=== PATIENT | male | born 1990 ===

== ENCOUNTER 2020-07-09 11:24 | Emergency (ER) | payer OTHER, SELFPAY ==
[2020-07-09 11:46] VITALS: BP 152/92; PULSE 72; RESP 18; TEMP 36.1; O2SAT 98; BMI 28.0
--- NOTE | 2020-07-09 13:14 | XR_ITS ---
EXAMINATION: XR CHEST CLINICAL INFORMATION: Shortness of breath COMPARISON: 04/19/2015 TECHNIQUE: Frontal view of the chest was obtained. FINDINGS: No significant abnormality is noted involving the heart, lungs, mediastinum, bony thorax or soft tissues. XR/XR chest 1V IMPRESSION: Unremarkable examination.
--- NOTE | 2020-07-09 13:15 | ED_ITS ---
HPI - Asthma General Chief Complaint: Asthma Stated Complaint: sob Time Seen by Provider: 07/09/20 13:13 Source: patient Mode of arrival: ambulatory Limitations: no limitations History of Present Illness HPI Narrative: Three days of shortness of breath and wheezing, patient described it as constant for the last 3 days despite using bronchodilator (patient's son medication), patient's son go to daycare with a positive COVID case. Patient also complained of dizziness (lightheadedness when he tried to take a deep breath), no headache, no weakness, no fever, no chills. Related Data Previous Rx's Medication Instructions Recorded albuterol sulfate 2.5 mg INHALATION Q4-6H PRN #75 ml 07/09/20 albuterol sulfate [ProAir HFA] 2 puff INHALATION Q6H PRN #18 g 07/09/20 Allergies Allergy/AdvReac Type Severity Reaction Status Date / Time No Known Allergies Allergy Unverified 04/13/20 17:23 [No Known Allergies*] Review of Systems Review of Systems: All other systems are reviewed and are negative Constitutional: Reports as per HPI and Reports no additional constitutional complaints Eyes: Reports as per HPI and Reports no additional eye complaints Reports system reviewed and no additional complaints, except as documented Cardiovascular: Reports as per HPI and Reports no additional cardiovascular complaints Respiratory: Reports as per HPI and Reports no additional respiratory complaints Gastrointestinal: Reports as per HPI and Reports no additional gastrointestinal complaints Genitourinary: Reports no additional female genitourinary complaints Musculoskeletal: Reports no additional musculoskeletal complaints Skin/Breast: Reports system reviewed and no additional complaints, except as docu Psychiatric: Reports no additional psychiatric complaints Endocrine: Reports no additional endocrine complaints Hematologic/Lymphatic: Reports no additional hematologic/lymphatic complaints Allergic/Immunologic: Reports no additional allergic/immunologic complaints Reports system reviewed and no additional complaints, except as documented and Reports Abnormal speech present [facility] Past Medical History Medical History Asthma Social History Social History (Updated 07/09/20 @ 13:19 by Casey Garner MD) Use of substances other than those prescribed or required for medical reasons: Yes Substance Use Type: Marijuana Substance Use Frequency: Daily Last Used Substance: Days (ago) Advance Directives: No Advance Directives Information Provided: No Physical Exam Vital Signs: Vital Signs: Last Vital Signs Temp 97 F 07/09/20 11:46 Pulse 54 07/09/20 13:32 Resp 18 07/09/20 11:46 BP 152/92 H 07/09/20 11:46 Pulse Ox 98 07/09/20 11:46 Body Mass Index 28.0 Vital signs have been reviewed as normal and appeared to be correct. Blood pressure on the high range. Heart rate normal. Respiration rate normal. Temperature normal. Oxygen saturation normal. Appearance: Alert. Oriented X3. No acute distress. Head: Normal external exam. Normocephalic. Atraumatic. No Greenfield signs noted. No raccoon eyes noted Eyes: PERRLA. EOMI. Conjunctiva and sclera normal. Eyelids normal. ENT: EAC normal. TM's Normal. Pharynx normal. Uvula midline. Moist mucous membranes. No trismus noted. No drooling noted. No muffled voice noted. Neck: Normal inspection. Neck supple. FROM. No adenopathy. Thyroid Normal. No meningeal signs. No neck mass noted. CVS: Normal heart rate and rhythm. Heart sound normal. No murmurs noted. Pulses normal throughout. Respiratory: No respiratory distress. Painless inspiration. Breath sounds normal. Diffuse and mild expiratory wheezes, no rales, no rhonchi noted. Chest nontender. No accessory muscle usage noted or decreased air movement noted. Abdomen: Soft and nontender. Bowel sounds normal in all 4 quadrants. No distention noted. No organomegaly noted. No visible injury noted. Back: No CVA tenderness. Full range of motion noted. Skin: Skin warm and dry. Normal skin color. Normal skin turgor. No rashes/lesions/lacerations noted. Extremities: No lower extremity edema. Extremities exhibit normal range of motion. Extremities nontender. Neuro: Oriented X 3. No motor deficit. No sensory deficit. Reflexes normal. MDM - Asthma MDM Narrative Medical decision making narrative: Assessment and plan. 29-year-old male presented with worsening of asthma with shortness of breath, sounds daycare had a positive case of COVID, patient tested positive for COVID- 19 in the emergency department, patient hemodynamically stable and not hypoxic, we will discharge the patient with 2 weeks of self-quarantine, bronchodilator p.r.n., seek immediate medical attention if worsening of the breathing. Lab Data Labs: Lab Results 07/09/20 Range/Units 13:22 COVID-19 ([facility]) Positive A (Negative) COVID-19 Clin Com See Note Imaging Data Chest x-ray: Radiologist's impression: Unremarkable examination. Discharge Plan Discharge Clinical Impression: Pneumonia due to 2019 novel coronavirus Asthma with acute exacerbation Qualifiers: Asthma severity: mild Asthma persistence: intermittent Qualified Code(s): J45.21 - Mild intermittent asthma with (acute) exacerbation Patient Disposition: Home, Self-Care Instructions: COVID-19 (Coronavirus Disease 2019) (ED) Additional Instructions: Use the face mask, hand wood heel back liner. Self-quarantine for 2 weeks. Seek immediate medical attention if worsening of shortness of breath. Prescriptions: New albuterol sulfate [ProAir HFA] 90 mcg/actuation HFA aerosol inhaler 2 puff inhalation Q6H PRN (Reason: shortness of breath or wheezing) Qty: 18 RF: 0 albuterol sulfate 2.5 mg /3 mL (0.083 %) solution for nebulization 2.5 mg inhalation Q4-6H PRN (Reason: shortness of breath or wheezing) Qty: 75 RF: 0 Referrals: Physician,Unknown [Primary Care Provider] - 2 days
[2020-07-09] MEDS: predniSONE 20 MG TABLET 60 MG PO (13:23)
[2020-07-09] MEDS: Albuterol/Iprat 2.5/0.5MG 3 ML AMPUL.NEB INHALE (13:27)
[2020-07-09] MEDS: Albuterol Sulfate (0.083%) 2.5 MG/3 ML VIAL.NEB 5 MG INHALE (13:27)
[2020-07-09 13:32] VITALS: PULSE 54; O2SAT 99
--- NOTE | 2020-07-09 13:38 | PC.NURSE ---
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 RESP THERAPY AT BEDSIDE PT GETTING RESP TREATMENT.
[2020-07-09 13:42] LABS: COVID-19 Test Positive (Negative)
== END 2020-07-09 14:20 | disposition home or self-care (01) ==
PROVIDERS: Emergency Provider Emergency Medicine
DX: U07.1 COVID-19 (principal); J12.89 Other viral pneumonia; J45.21 Mild intermittent asthma with (acute) exacerbation; F12.90 Cannabis use, unspecified, uncomplicated; Z79.899 Other long term (current) drug therapy
CPT/HCPCS: 71045; 87635; 94640; 94644; 99283

== ENCOUNTER 2020-12-10 10:26 | Emergency (ER) | payer OTHER, SELFPAY ==
--- NOTE | ~2020-12-10 | XR_ITS ---
EXAMINATION: XR CHEST CLINICAL INFORMATION: Wheezing and shortness of breath COMPARISON: Chest x-ray 07/09/2020 TECHNIQUE: Frontal view of the chest was obtained. FINDINGS: Cardiac silhouette is normal in size. The lungs are well aerated. There is no lobar consolidation. No pleural effusion or pneumothorax. XR/XR chest 1V IMPRESSION: Stable examination demonstrating no acute pulmonary pathology.
[2020-12-10 10:30] VITALS: BP 134/63; PULSE 81; RESP 16; TEMP 36.9; O2SAT 99; BMI 28.1
--- NOTE | 2020-12-10 10:48 | ED_ITS ---
HPI - Asthma General Chief Complaint: Dyspnea Stated Complaint: DIFF BREATHING ASTHMA Time Seen by Provider: 12/10/20 10:41 Source: patient Mode of arrival: ambulatory Limitations: no limitations History of Present Illness HPI Narrative: 30 y/o male with history of mild intermittent asthma presents with wheezing and SOB for the last 2 days, worse this morning. He states overall his asthma is well controlled and it only flares up when he is sick. He has been using his rescue inhaler with persistent feeling of wheezing. He has a cough productive of green phlegm. He has chest soreness when he coughs. No fever, ch ills, N/V, body aches, headaches, abdominal pain. No exposure to COVID. He has a history of COVID in August. MD complaint: asthma attack and wheezing Onset (ago): day(s) (2) Severity: moderate and similar to prior Context: none known Associated symptoms: productive cough Asthma History: childhood onset Related Data Current Asthma Therapy: inhaled bronchodilator (PRN only ) Previous Rx's Medication Instructions Recorded albuterol sulfate 2.5 mg INHALATION Q4-6H PRN #75 ml 07/09/20 albuterol sulfate [ProAir HFA] 2 puff INHALATION Q6H PRN #18 g 07/09/20 azithromycin [Zithromax Z-Óscar] See Rx Instructions .ROUTE 12/10/20 .COMPLEX #6 tab prednisone 40 mg PO DAILY 5 Days #10 tab 12/10/20 Allergies Allergy/AdvReac Type Severity Reaction Status Date / Time No Known Allergies Allergy Unverified 04/13/20 17:23 [No Known Allergies*] Review of Systems Review of Systems: Constitutional: No Fever, No Chills ENT/Mouth: No sore throat, No Rhinorrhea, No Swallowing Difficulty Eyes: No Eye Pain, No Swelling, No Redness Cardiovascular: No Chest Pain, + SOB, No Orthopnea, No Edema Respiratory: + Cough, + Sputum, + Wheezing, No dyspnea Gastrointestinal: No Nausea, No Vomiting, No abdominal Pain Musculoskeletal: No joint pain, No Myalgias Skin: No Skin Lesions, No rash Neuro: No Weakness, No Dizziness, No Headache Heme/Lymph: No Lymphadenopathy PMFSH Past Medical History Attestation statement: The following information was validated with the patient. Medical History Asthma Social History Social History (Updated 07/09/20 @ 13:19 by Casey Garner MD) Substance Use Type: Marijuana Advance Directives: Yes Advance Directives Information Provided: No Advance Directives on File: No Physical Exam Vital Signs: Vital Signs: Last Vital Signs Temp 98.5 F 12/10/20 10:30 Pulse 87 12/10/20 11:41 Resp 18 12/10/20 11:41 BP 134/63 12/10/20 10:30 Pulse Ox 98 12/10/20 11:41 Body Mass Index 28.1 Appearance: Alert. Oriented X3. No acute distress. Eyes: Pupils equal, round and reactive to light. ENT: Pharynx normal. Neck: Normal inspection. Neck supple. CVS: Normal heart rate and rhythm. Pulses normal. Respiratory: No respiratory distress. Speaking in complete sentences, end expiratory wheezing throughout all lung felipe, no rhonchi or rales. Abdomen: Soft and nontender. +BS x4 Skin: Skin warm and dry. Normal skin color. Normal skin turgor. No rashes. Extremities: No lower extremity edema. Negative Erica's sign Neuro: Oriented X 3. Non-focal, ambulates with steady gait without RODRIGUEZ Course Course Course Narrative: 30 y/o male with history of mild intermittent asthma presenting with wheezing and productive cough x2 days. No COVID symptoms. Non- toxic and afebrile on arrival with mild wheezing throughout. Will check CXR and give albuterol neb and PO prednisone. Will reassess. Reevaluation(s) Reevaluation #1: 12:10pm - CXR negative. Breath sounds improved s/p neb. Patient is feeling better. He is stable for d/c with treatment for acute bronchitis and asthma exacerbation. Discharge Plan Discharge Clinical Impression: Asthma with exacerbation Qualifiers: Asthma severity: mild Asthma persistence: intermittent Qualified Code(s): J45.21 - Mild intermittent asthma with (acute) exacerbation Acute bronchitis Qualifiers: Bronchitis organism: unspecified organism Qualified Code(s): J20.9 - Acute bronchitis, unspecified Patient Disposition: Home, Self-Care Instructions: Asthma (ED), Acute Bronchitis (ED) Additional Instructions: Your chest x-ray today did not show any evidence of pneumonia. Given your productive cough you are being started on antibiotics for bronchitis. Take the prescribed Prednisone as directed. Start taking it tomorrow, you were given your 1st dose in the ER today. Continue to use your rescue inhaler every 4 hours as needed. Recommend over the counter Mucinex 1,200 mg two times per day for 3 days. Rest and stay hydrated. Avoid second hand smoke, cleaning chemicals and perfumes. Follow up with your doctor this week. If you have worsening symptoms come back to the ER for further evaluation. Prescriptions: New azithromycin [Zithromax Z-Óscar] 250 mg tablet See Rx Instructions .ROUTE .COMPLEX Qty: 6 RF: 0 prednisone 20 mg tablet 40 mg PO DAILY 5 Days Qty: 10 RF: 0 No Action albuterol sulfate [ProAir HFA] 90 mcg/actuation HFA aerosol inhaler 2 puff inhalation Q6H PRN (Reason: shortness of breath or wheezing) Qty: 18 RF: 0 albuterol sulfate 2.5 mg /3 mL (0.083 %) solution for nebulization 2.5 mg inhalation Q4-6H PRN (Reason: shortness of breath or wheezing) Qty: 75 RF: 0 Stand Alone Forms: Work/School Release
[2020-12-10] MEDS: predniSONE 20 MG TABLET 60 MG PO (10:50)
[2020-12-10] MEDS: Albuterol Sulfate (0.083%) 2.5 MG/3 ML VIAL.NEB 10 MG INHALE (11:00)
--- NOTE | 2020-12-10 11:02 | PC.NURSE ---
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 SINUS RYTHYM.
[2020-12-10 11:04] VITALS: PULSE 78; O2SAT 99
[2020-12-10 11:41] VITALS: PULSE 87; RESP 18; O2SAT 98
== END 2020-12-10 12:19 | disposition home or self-care (01) ==
PROVIDERS: Emergency Provider Emergency Medicine
DX: J45.21 Mild intermittent asthma with (acute) exacerbation (principal); J20.9 Acute bronchitis, unspecified; F12.90 Cannabis use, unspecified, uncomplicated; Z79.899 Other long term (current) drug therapy; Z20.822 Contact with and (suspected) exposure to COVID-19
CPT/HCPCS: 71045; 94640; 94644; 99284

== ENCOUNTER 2021-03-16 07:36 | Outpatient (REF) | payer OTHER, SELFPAY ==
[2021-03-16 08:05] LABS: COVID-19 Test Negative (Negative)
== END 2021-03-16 07:37 | disposition home or self-care (01) ==
LOC: HO.LAB 07:36
PROVIDERS: Visit Provider Internal Medicine
DX: Z20.822 Contact with and (suspected) exposure to COVID-19 (principal)
CPT/HCPCS: 36415; 87635; C9803

== ENCOUNTER 2023-04-01 08:59 | Emergency (ER) | payer OTHER, SELFPAY ==
--- NOTE | ~2023-04-01 | XR_ITS ---
EXAMINATION: XR FINGER, LEFT CLINICAL INFORMATION: Pain COMPARISON: None available. TECHNIQUE: 3 views of the left fifth digit. FINDINGS: Bones have normal alignment within the visualized hand and wrist. Joint spaces are maintained. No acute fracture or subluxation. There are no dystrophic soft tissue calcifications. There is a flexion deformity of the distal interphalangeal joint of the fifth digit. The chronicity of the deformity is uncertain. There are no comparison exams. No history of trauma is provided. XR/XR finger LT min 2V IMPRESSION: Mallet finger (5th digit) without evidence of fracture.
[2023-04-01 09:12] VITALS: BP 131/82; PULSE 80; RESP 16; TEMP 36.9; O2SAT 98; BMI 30.5
--- NOTE | 2023-04-01 09:14 | ED_ITS ---
HPI - Extremity Injury (Upper) General Chief Complaint: Extremity Injury, Upper Stated Complaint: Finger inj L hand Time Seen by Provider: 04/01/23 09:10 Source: patient and RN notes reviewed Mode of arrival: ambulatory Limitations: no limitations History of Present Illness HPI narrative: This is a 32-year-old male, with a past medical history of asthma presenting to the emergency department with complaints of left finger pain x2 days. Patient states that he jumped into a pool and believes that he jammed his finger on a railing. He states he did not initially have pain but he was drinking alcohol and believes that his judgment was impaired. Patient reports that he is right- handed. He reports some tenderness to palpation along his finger however is unable to fully extend his finger since the injury. He is applying ice which has provided him with some relief. No other complaints or concerns at this time. complaint: injury to: finger Onset (ago): day(s) Other Extremity Injury: left: fingers Other injuries: none Handedness: right Place: home Relieving factors: cold therapy Exacerbating factors: none Context: direct blow Associated symptoms: denies other symptoms Related Data Previous Rx's Medication Instructions Recorded albuterol sulfate 2.5 mg/3 mL 2.5 mg (3 mL) inhalation Q4-6H PRN 07/09/20 (0.083 %) solution for nebulization shortness of breath or wheezing #75 mL albuterol sulfate 90 mcg/actuation 2 puff inhalation Q6H PRN 07/09/20 aerosol inhaler (ProAir HFA) shortness of breath or wheezing #18 grams azithromycin 250 mg tablet See Rx Instructions PO .COMPLEX #6 12/10/20 (Zithromax Z-Óscar) tabs prednisone 20 mg tablet 40 mg PO DAILY 5 days #10 tabs 12/10/20 Allergies Allergy/AdvReac Type Severity Reaction Status Date / Time No Known Allergies Allergy Unverified 04/13/20 17:23 [No Known Allergies*] Review of Systems Review of Systems: Yes all other systems are reviewed and are negative [facility] Past Medical History Attestation statement: The following information was validated with the patient. Medical History Asthma Social History Social History Substance Use Type: Marijuana Advance Directives: No Advance Directives Information Provided: No Physical Exam Vital Signs: Vital Signs: Last Vital Signs Temp 98.4 F 04/01/23 09:12 Pulse 80 04/01/23 09:12 Resp 16 04/01/23 09:12 BP 131/82 04/01/23 09:12 Pulse Ox 98 04/01/23 09:12 BMI result Body Mass Index 30.5 Const: Other: General: Awake, alert, and oriented X3. No acute distress. HEENT: Normal inspection CVS: Normal heart rate and rhythm. Pulses normal. Respiratory: No respiratory distress Skin: Warm, dry, no rashes noted to exposed skin. Normal skin color. Normal skin turgor. Extremities: left fifth DIP in flexed position, unable to extend left 5th PIP able to flex the DIP, PIP range of motion is full and intact. No surrounding erythema or warmth. Radial pulses 2+. Neuro: Oriented X 3. No motor deficit. No sensory deficit. Course Reevaluation(s) Reevaluation #1: X-ray reviewed without any bony abnormalities, mallet finger without any evidence of fracture seen. Placed patient's left 5th digit and a finger splint. Given orthopedic follow-up. Advised to keep splint on finger at all times. Patient understands and agrees with plan. Patient stable for discharge. Time: 10:20 Medical Decision Making Medical Decision Making MDM Narrative: This is a 32-year-old male presenting to the emergency department with complaints of jammed left 5th finger. Patient states that several days ago he jumped and hit his finger in a pool he has been unable to extend his left 5th D IP since this injury. On examination, left 5th PIP is flexed, with mild tenderness to palpation along the D IP. No surrounding erythema or warmth. Differential diagnoses include mallet finger, fracture, dislocation, contusion. Given exam min a duque findings, will obtain x-rays to rule out fracture and dislocation. Differential Diagnosis Differential Diagnoses: The differential diagnosis associated with the presentation includes See above Independent Interpretation I performed an independent interpretation of an: Plain X-Ray Interpretation: EXAMINATION: XR FINGER, LEFT CLINICAL INFORMATION: Pain? COMPARISON: None available.? TECHNIQUE: 3 views of the left fifth digit. FINDINGS: Bones have normal alignment within the visualized hand and wrist. Joint spaces are maintained. No acute fracture or subluxation. There are no dystrophic soft tissue calcifications. There is a flexion deformity of the distal interphalangeal joint of the fifth digit. The chronicity of the deformity is uncertain. There are no comparison exams. No history of trauma is provided.? XR/XR finger LT min 2V IMPRESSION: Mallet finger (5th digit) without evidence of fracture. ? Dictated By: Sumeet Richardson MD Discharge Plan Discharge Clinical Impression: Mallet deformity of little finger Patient Disposition: Home, Self-Care Instructions: Jammed Finger (ED) Additional Instructions: Your x-rays today show no broken bones or dislocation. You have an injury to the tendon responsible for extending your finger. We have placed her finger into a finger splint. You have to wear this 24/, even while your sleeping to help repair this tendon. You may have to wear this splint for 6-8 weeks. I am giving you a referral to the crm marketing specialist, call today to make an appointment. If any new or worsening symptoms occur including but not limited to worsening pain, weakness or numbness into your finger, redness or swelling, please return for re-evaluation. Prescriptions: No Action azithromycin [Zithromax Z-Óscar] 250 mg tablet See Rx Instructions .ROUTE .COMPLEX Qty: 6 0RF Rx Instructions: take 500 mg today (day 1), then 250 mg for 4 days (days 2-5) prednisone 20 mg tablet 40 mg PO DAILY 5 Days Qty: 10 0RF albuterol sulfate [ProAir HFA] 90 mcg/actuation HFA aerosol inhaler 2 puff inhalation Q6H PRN (Reason: shortness of breath or wheezing) Qty: 18 0RF albuterol sulfate 2.5 mg /3 mL (0.083 %) solution for nebulization 2.5 mg inhalation Q4-6H PRN (Reason: shortness of breath or wheezing) Qty: 75 0RF Referrals: [facility] [Provider Group]
== END 2023-04-01 10:33 | disposition home or self-care (01) ==
PROVIDERS: Emergency Provider Emergency Medicine
DX: M20.012 Mallet finger of left finger(s) (principal); Z79.899 Other long term (current) drug therapy
CPT/HCPCS: 73140; 99282; 99283

== ENCOUNTER 2023-08-27 09:17 | Emergency (ER) | payer OTHER, SELFPAY ==
--- NOTE | ~2023-08-27 | XR_ITS ---
EXAMINATION: XR LEFT FOOT XR SACRUM/COCCYX CLINICAL INFORMATION: Left lateral foot pain after fall. Pain in the coccyx region. COMPARISON: None. TECHNIQUE: AP, lateral, and oblique views of the left foot. AP and lateral views of the sacrum and coccyx. FINDINGS: Left foot: There is an ossific fragment seen along the lateral process of the calcaneus with surrounding soft tissue swelling possibly representing periosteal sleeve avulsion. Sacrum/coccyx: The sacrum is partially obscured by overlying bowel contents. Sacroiliac joints and pubic symphysis are intact. No displaced fracture or dislocation. XR/XR sacrum coccyx min 2V IMPRESSION: Avulsion fracture of the lateral process of the calcaneus with associated soft tissue swelling.
--- NOTE | ~2023-08-27 | XR_ITS ---
EXAMINATION: XR LEFT FOOT XR SACRUM/COCCYX CLINICAL INFORMATION: Left lateral foot pain after fall. Pain in the coccyx region. COMPARISON: None. TECHNIQUE: AP, lateral, and oblique views of the left foot. AP and lateral views of the sacrum and coccyx. FINDINGS: Left foot: There is an ossific fragment seen along the lateral process of the calcaneus with surrounding soft tissue swelling possibly representing periosteal sleeve avulsion. Sacrum/coccyx: The sacrum is partially obscured by overlying bowel contents. Sacroiliac joints and pubic symphysis are intact. No displaced fracture or dislocation. XR/XR foot LT 2V IMPRESSION: Avulsion fracture of the lateral process of the calcaneus with associated soft tissue swelling.
--- NOTE | ~2023-08-27 | XR_ITS ---
EXAMINATION: XR ANKLE, LEFT CLINICAL INFORMATION: Left ankle pain. COMPARISON: None available. TECHNIQUE: AP, lateral, and mortise views of the left ankle. FINDINGS: Alignment is anatomic. Possible avulsion fracture of the lateral process of the calcaneus seen on the frontal projection. Talar dome is intact ankle mortise is maintained. XR/XR ankle LT min 3V IMPRESSION: Possible avulsion fracture of the lateral process of the calcaneus with surrounding soft tissue swelling. Advise clinical correlation with point tenderness on physical exam.
[2023-08-27 09:24] VITALS: BP 135/64; PULSE 76; RESP 18; TEMP 36.7; O2SAT 96; BMI 30.5
--- NOTE | 2023-08-27 09:46 | ED_ITS ---
HPI - Extremity Injury (Lower) General Chief Complaint: Extremity Injury, Lower Stated Complaint: L Ankle Injury 08/26/23 Time Seen by Provider: 08/27/23 09:28 Source: patient Mode of arrival: ambulatory Limitations: no limitations History of Present Illness HPI Narrative: 32-year-old male presents status post slip and fall yesterday, patient reports he slipped on ice while clearing off snow/ice onto his bottom, immediately after he fell he started having severe left ankle pain he thinks he may have felt a pop in his left ankle and is also having pain in his tailbone region. Patient has been using crutches to ambulate as he reports his left ankle is very painful. Pain is worse with range of motion better at rest. Denies numbness, tingling, head strike, loss of consciousness, change in urinary or bowel habits, saddle paresthesias, weakness. Patient not on blood thinners. Related Data Previous Rx's Medication Instructions Recorded albuterol sulfate 2.5 mg/3 mL 2.5 mg (3 mL) inhalation Q4-6H PRN 07/09/20 (0.083 %) solution for nebulization shortness of breath or wheezing #75 mL albuterol sulfate 90 mcg/actuation 2 puff inhalation Q6H PRN 07/09/20 aerosol inhaler (ProAir HFA) shortness of breath or wheezing #18 grams azithromycin 250 mg tablet See Rx Instructions PO .COMPLEX #6 12/10/20 (Zithromax Z-Óscar) tabs prednisone 20 mg tablet 40 mg (2 x 20 mg) PO DAILY 5 days 12/10/20 #10 tabs ketorolac 10 mg tablet 10 mg PO TID PRN pain 5 days #15 08/27/23 tabs Allergies Allergy/AdvReac Type Severity Reaction Status Date / Time No Known Allergies Allergy Unverified 04/13/20 17:23 [No Known Allergies*] Review of Systems Review of Systems: Constitutional : No Weight loss, No Fever, No Chills, No Fatigue, No Malaise ENT/Mouth : No sore throat, No Rhinorrhea Eyes: No Eye Pain, No Swelling, No Redness Cardiovascular : No Chest Pain, No SOB, No Dyspnea on Exertion, No Orthopnea, No Edema, No Palpitations Respiratory : No Cough, No Sputum, No Wheezing Gastrointestinal : No Nausea, No Vomiting, No Diarrhea, No Constipation, No abdominal Pain, No Hematochezia, No Melena Genitourinary : No Dysuria, No Urinary Frequency, No Hematuria, Musculoskeletal : No joint pain, No Myalgias, No Joint Swelling, + pain to L ankle + pain to buttocks Skin : No Skin Lesions, No rash Neuro : No Weakness, No Numbness, No Dizziness, No Headache Psych : No Anxiety/Panic, No Depression All other systems reviewed and are negative Yes all other systems are reviewed and are negative [facility] Past Medical History Attestation statement: The following information was validated with the patient. Source: old records reviewed and nursing notes reviewed Medical History Asthma Social History Social History Substance Use Type: Marijuana Advance Directives: No Advance Directives Information Provided: No Physical Exam Vital Signs: Vital Signs: Last Vital Signs Temp 98.1 F 08/27/23 09:24 Pulse 76 08/27/23 09:24 Resp 18 08/27/23 09:24 BP 135/64 08/27/23 09:24 Pulse Ox 96 08/27/23 09:24 O2 Del Method Room Air 08/27/23 09:24 BMI result Body Mass Index 30.5 vss Appearance: Alert.? Oriented X3.? No acute distress.? Head: Normocephalic, atraumatic, no step-offs or deformities Eyes: Pupils equal, round and reactive to light.? CVS: Normal heart rate and rhythm.? Pulses normal.? Respiratory: No respiratory distress.? Breath sounds normal.? Abdomen: Soft and nontender.? Skin: Skin warm and dry.? Normal skin color.? Normal skin turgor.? Extremities: No lower extremity edema.? No calf ttp. 5/5 strength to bilateral upper and lower extremities + swelling to the lateral aspect of left foot/ankle without overlying skin changes full range of motion to bilateral ankles however slight discomfort with range of motion of left ankle. Patient able to wiggle all his toes however some pain with wiggling toes of his left foot. 2+ dorsalis pedis, anterior tibialis and posterior tibialis pulses equal bilateral. Normal sensation distally Back: No midline tenderness, no C-spine tenderness, full range of motion, no CVA tenderness bilaterally. Patient does have pain in his coccyx region/tailbone without overlying skin changes. No saddle paresthesias. Ambulating with steady gait normal coordination. Neuro: Oriented X 3.? No motor deficit.? No sensory deficit. CN 2-12 intact GCS- 15 NIHSS-0 Course Reevaluation(s) Reevaluation #1: X-ray showing a avulsion fracture of the lateral process of the calcaneus with associated soft tissue swelling. There is no fractures or dislocations of the sacrum/coccyx. TT out to ortho for advise on tx plan. Time: 11:35 Reevaluation #2: Orthopedics recommends walking boot with weight-bearing as tolerated. Patient has crutches at home if needed. Patient will be given a walking boot. Educated on signs and symptoms of compartment syndrome. Patient verbalizes understanding. Educated patient on diagnosis and treatment plan, answered all question, patient verbalizes understanding. At this time patient will be discharged home, advised to return with new or worsening symptoms. Educated on worrisome signs and symptoms and when to return. At this time I feel comfortable discharge home. Time: 11:40 Medications Administered Discontinued Medications Generic Name Dose Route Start Last Admin Trade Name Freq PRN Reason Stop Dose Admin Ketorolac Tromethamine 30 mg 08/27/23 09:45 08/27/23 09:55 Ketorolac Tromethamine 30 Mg/Ml Vial IM 08/27/23 09:46 30 mg ONCE ONE Administration Medical Decision Making Medical Decision Making [facility] Narrative: 32-year-old male presents with complaints of left ankle pain and pain to coccyx Physical exam swelling to the lateral aspect of left foot/ankle without overlying skin changes full range of motion to bilateral ankles however slight discomfort with range of motion of left ankle. Patient able to wiggle all his toes however some pain with wiggling toes of his left foot. 2+ dorsalis pedis, anterior tibialis and posterior tibialis pulses equal bilateral. Normal sensation distally. Patient does have pain in his coccyx region/tailbone without overlying skin changes. No saddle paresthesias. Ambulating with steady gait normal coordination. Will rule out traumatic injury to coccyx. Will rule out fracture dislocation of left ankle. However likely sprain or strain. No signs of neurovascular compromise, threat to limb. No signs of cauda equina, epidural abscess, cord compression. No signs of traumatic injury to head, neck, chest, abdomen or pelvis. Plan imaging. Toradol for pain control Differential Diagnosis Differential Diagnoses: The differential diagnosis associated with the prese ntation includes Will rule out traumatic injury to coccyx. Will rule out fracture dislocation of left ankle. However likely sprain or strain. No signs of neurovascular compromise, threat to limb. No signs of cauda equina, epidural abscess, cord compression. No signs of traumatic injury to head, neck, chest, abdomen or pelvis. Admission/Observation Consideration of admission/observation: Escalation of care including admission/observation considered Unlikely Consult Healthcare Provider Management of the patient was discussed with: Sampler Ovens (Ortho ) Independent Interpretation I performed an independent interpretation of an: Plain X-Ray ( XR/XR foot LT 2V IMPRESSION: Avulsion fracture of the lateral process of the calcaneus with associated soft tissue swelling. ) Radiology Impression Discussion of test interpretation with radiology: I have reviewed the radiologist's reading. Tests considered The following testing was considered but not selected: bul[place] head ct rule - no trauma so no indication for imaging Prescription Management I considered prescription management with: Pain Medication Tordol Critical Care Time Critical Care Time Critical Care Time: Yes Total Critical Care Time: 35 Attestation: I attest to this time spent taking care of the patient, obtaining history, physical, reviewing labs, imaging, speaking to my attending, speaking to specialist. Discharge Plan Discharge Clinical Impression: Avulsion fracture of calcaneus Patient Disposition: Home, Self-Care Instructions: Crutch Instructions (ED), Calcaneal Fracture (ED) Additional Instructions: Take your medications as prescribed. If you were prescribed antibiotics today, it is important that you take your medication to their entirety, do not skip any doses, do not finish them early. Follow-up with your primary care provider this week. Return to the emergency department with new or worsening symptoms. Such as fevers, chills, chest pain, shortness of breath, nausea, vomiting, dizziness, headache, vision changes, lethargy In case of emergency call 911 Dont sleep w/ the boot on Weight-bearing as tolerated XR/XR foot LT 2V IMPRESSION: Avulsion fracture of the lateral process of the calcaneus with associated soft tissue swelling. Sacrum/coccyx: The sacrum is partially obscured by overlying bowel contents. Sacroiliac joints and pubic symphysis are intact. No displaced fracture or dislocation. Prescriptions: New ketorolac 10 mg tablet 10 mg PO TID PRN (Reason: pain) 5 Days Qty: 15 0RF No Action azithromycin [Zithromax Z-Óscar] 250 mg tablet See Rx Instructions .ROUTE .COMPLEX Qty: 6 0RF Rx Instructions: take 500 mg today (day 1), then 250 mg for 4 days (days 2-5) prednisone 20 mg tablet 40 mg PO DAILY 5 Days Qty: 10 0RF albuterol sulfate [ProAir HFA] 90 mcg/actuation HFA aerosol inhaler 2 puff inhalation Q6H PRN (Reason: shortness of breath or wheezing) Qty: 18 0RF albuterol sulfate 2.5 mg /3 mL (0.083 %) solution for nebulization 2.5 mg inhalation Q4-6H PRN (Reason: shortness of breath or wheezing) Qty: 75 0RF Referrals: Physician,None [Primary Care Provider] - 2 days Stand Alone Forms: Work/School Release
[2023-08-27] MEDS: Ketorolac Tromethamine 30 MG/ML VIAL IM (09:55)
--- NOTE | 2023-08-27 10:01 | PC.NURSE ---
patient a&ox3, c/o buttock pain 05/06, pt medicated per order, call mir within reach, will continue to monitor
[2023-08-27 12:00] VITALS: BP 138/58; PULSE 77; RESP 18; TEMP 36.7; O2SAT 96
== END 2023-08-27 12:29 | disposition home or self-care (01) ==
PROVIDERS: Emergency Provider Emergency Medicine Emergency Medical Services
DX: S92.002A Unspecified fracture of left calcaneus, initial encounter for closed fracture (principal); W00.0XXA Fall on same level due to ice and snow, initial encounter; M53.3 Sacrococcygeal disorders, not elsewhere classified; Y93.89 Activity, other specified; Y92.89 Other specified places as the place of occurrence of the external cause; Y99.9 Unspecified external cause status
CPT/HCPCS: 72220; 73610; 73620; 96372; 99284; J1885

== ENCOUNTER 2023-12-17 10:40 | Emergency (ER) | payer OTHER, SELFPAY ==
--- NOTE | ~2023-12-17 | XR_ITS ---
EXAMINATION: XR KNEE, RIGHT CLINICAL INFORMATION: Pain COMPARISON: None available. TECHNIQUE: Four views of the right knee. FINDINGS: Hardware partially visualized in the distal femur. There is lucency around the hardware. Therefore an element of loosening cannot be excluded. There is no evidence for an acute fracture or dislocation. Small bony excrescence emanating off the medial aspect of the proximal tibial metadiaphysis could represent a small osteochondroma. Please compare with previous studies XR/XR knee RT 4V IMPRESSION: No acute finding. Hardware in the distal femur. Element of loosening cannot be excluded. There is no evidence for an acute fracture or dislocation. Other findings are as described above.
[2023-12-17 10:48] VITALS: BP 147/93; PULSE 78; RESP 16; TEMP 36.9; O2SAT 98; BMI 32.3
--- NOTE | 2023-12-17 12:12 | ED_ITS ---
HPI - General Adult General Chief complaint: Extremity Injury, Lower Stated complaint: R knee pain Time Seen by Provider: 12/17/23 12:11 Source: patient Mode of arrival: ambulatory Limitations: no limitations History of Present Illness ED Provider: Adilene Burden PA-C HPI narrative: Patient is a 33 year old assigned male at with a history of previous right leg surgery in childhood presenting to the emergency department today with right knee pain. Patient states that 3 weeks ago he noticed pain in his right knee that seems to be getting worse. 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 Patient states that his right knee is giving out at times. Patient states that he removed a tick from his chest a little while ago and does not think he got the head out. Patient denies any dizziness, lightheadedness, abdominal pain, nausea, vomiting, fever, chills, blurry vision, double vision, loss of vision, chest pain, difficulty breathing, shortness of breath, back pain, night sweats, pain with urination, increased urinary frequency, increased urinary urgency, blood in his urine or stool, syncope or a near syncopal episode, recent trauma or falls, bowel incontinence, bladder incontinence, bowel retention, bladder retention, or any other complaints at this time. Onset (ago): week(s) (3) Location: right and lower extremity Radiation: non-radiation Severity: mild Severity scale (1-10): 3 Quality: aching and dull Pain Consistency: constant Relieving factors: immobilization Exacerbating factors: movement Associated symptoms: denies other symptoms Treatments prior to arrival: none Related Data Previous Rx's ?Medication ?Instructions ?Recorded albuterol sulfate 2.5 mg/3 mL 2.5 mg (3 mL) inhalation Q4-6H PRN 07/09/20 (0.083 %) solution for nebulization shortness of breath or wheezing #75 mL albuterol sulfate 90 mcg/actuation 2 puff inhalation Q6H PRN 07/09/20 aerosol inhaler (ProAir HFA) shortness of breath or wheezing #18 grams azithromycin 250 mg tablet See Rx Instructions PO .COMPLEX #6 12/10/20 (Zithromax Z-Óscar) tabs prednisone 20 mg tablet 40 mg (2 x 20 mg) PO DAILY 5 days 12/10/20 #10 tabs ketorolac 10 mg tablet 10 mg PO TID PRN pain 5 days #15 08/27/23 tabs doxycycline hyclate 100 mg tablet 100 mg PO BID 10 days #20 tabs 12/17/23 Allergies Allergy/AdvReac Type Severity Reaction Status Date / Time No Known Allergies Allergy Verified 12/17/23 10:51 [No Known Allergies*] Review of Systems 2 Constitutional: Constitutional: Reports no additional constitutional complaints, Denies chills, Denies fever(s) and Denies night sweats Eyes: Eyes: Reports no additional eye complaints, Denies blurry vision, Denies change in vision, Denies diplopia, Denies eye discharge, Denies loss of vision and Denies eye pain ENT: Denies dizziness Cardiovascular: Cardiovascular: Reports no additional cardiovascular complaints, Denies chest pain, Denies lightheadedness, Denies Loss of Consciousness and Denies dyspnea Respiratory: Respiratory: Reports no additional respiratory complaints and Denies dyspnea Gastrointestinal: Gastrointestinal: Reports no additional gastrointestinal complaints, Denies abdominal pain, Denies melena, Denies hematochezia, Denies change in bowel habits and Denies change in stool character Genitourinary: Genitourinary: Reports no additional male genitourinary complaints, Denies hematuria, Denies oliguria, Denies difficulty urinating, Denies dysuria, Denies urinary frequency, Denies urinary hesitancy, Denies urinary incontinence and Denies urinary urgency Musculoskeletal: Musculoskeletal: Reports no additional musculoskeletal complaints, Denies numbness and Denies tingling Comments: right knee pain Integumentary/Breasts: Comments: possible retained tick head in chest Neurologic: Denies dizziness, Denies loss of vision, Denies numbness and Denies tingling Psychiatric: Psychiatric: Reports no additional psychiatric complaints Endocrine: Endocrine: Reports no additional endocrine complaints Hematologic/Lymphatic: Hematologic/Lymphatic: Reports no additional hematologic/lymphatic complaints Allergic/Immunologic: Allergic/Immunologic: Reports no additional allergic/immunologic complaints PMFSH Past Medical History Attestation statement: The following information was validated with the patient. Source: old records reviewed and nursing notes reviewed Medical History Asthma Social History Social History Substance Use Type: Marijuana Advance Directives: No Advance Directives Information Provided: No Physical Exam ED Vital Signs: Vital Signs - 24 hr 12/17/23 10:48 12/17/23 12:29 Temperature 98.5 F 97.1 F Pulse Rate 78 86 Respiratory Rate 16 18 Blood Pressure 147/93 H 147/94 H Pulse Oximetry 98 97 Oxygen Delivery Method Room Air Room Air BMI result Body Mass Index 32.3 Const General: cooperative, no acute distress, alert and awake Nutritional Appearance: well nourished Orientation/consciousness: patient oriented x3 Limitations: no limitations HENMT Head: Yes normal to inspection and Yes atraumatic Ears: hearing grossly normal bilaterally and external ears normal General nose exam: Normal external nose present, no nasal discharge noted and no epistaxis Face and sinus: Yes normal facial exam, No abrasion and No laceration Mouth: Normal oral and palatal mucosa present, no drooling and no muffled voice Eyes General: appearance normal, both eyes and all related structures Periorbital: periorbital findings normal Eyelids: Yes eyelids normal Conjunctivae: conjunctivae normal Pupils: Equal, round and reactive pupils present EOM: EOMs intact bilaterally Neck Neck: Yes normal visual inspection, Yes full ROM and Yes no lymphadenopathy Chest Chest/axillae images: 2 1. very small skin tag - patient reports there may be a tick head inside Resp Effort & Inspection: normal respiratory effort and able to speak in complete sentences GI Inspection: Yes normal to inspection Neuro General: patient oriented x3 and moves all extremities Cranial nerves: Yes Equal, round and reactive pupils present Cognition (Neuro): normal cognition Motor exam (neuro): 5/5 motor strength present throughout Sensory Exam: Normal double simultaneous stimulation for sensation Coordination: [id number] test normal Extrem Other: pain with right knee ROM General: Yes normal to inspection, Yes full ROM and Yes capillary refill normal Psych Appearance: grossly normal Mental Status: mental status grossly normal Affect: normal affect Attitude: cooperative Thought process: Normal thought process present Thought content: Normal thought content present Insight: Good insight present (Psych) Medications Administered Discontinued Medications Generic Name Dose Route Start Last Admin Trade Name Freq PRN Reason Stop Dose Admin Ketorolac Tromethamine 15 mg 12/17/23 12:37 12/17/23 12:44 Ketorolac Tromethamine 15 Mg/Ml Vial IM 12/17/23 12:38 15 mg ONCE ONE Administration Medical Decision Making Medical Decision Making MDM Narrative: Patient is a 33 year old assigned male at with a history of surgery on the right leg as a child presenting to the emergency department today with right knee pain and a tick bite. Patient's physical exam was as noted in the physical exam portion of this note. Patient's chest has a small skin tag which the patient states appeared after the tick bite and he is concerned it is the ticks head. No erythema, no fluctuance, no pain to the area. Patient's right knee had full ROM however, the patient had pain with all right knee ROM. Patient's tick borne panel is pending but given patient's bite and concern, will treat. Patient's right knee x-ray showed no acute process. I explained my physical exam findings as well as all test results to the patient. I answered all questions asked by the patient. I stressed the importance of the patient taking his medication as prescribed. I stressed the importance of the patient following up with his primary care provider and an orthopedic provider. I stressed the importance of the patient returning to the emergency department immediately if his symptoms were to worsen or if he were to develop any dizziness, shortness of breath, difficulty breathing, chest pain, blurry vision, loss of vision, nausea, vomiting, abdominal pain, fever, chills, back pain, or any other complaints. Patient verbalized agreement and understanding with this treatment plan and discharge. Differential Diagnosis Differential Diagnoses: The differential diagnosis associated with the presentation includes Knee sprain Knee strain Knee pain Internal knee injury Lyme disease Tick borne illness Admission/Observation Consideration of admission/observation: Escalation of care including admission/observation considered Patient would have been admitted to the hospital had his work up had any findings where hospital admission was appropriate and his clinical presentation warranted hospital admission. Independent Interpretation I performed an independent interpretation of an: Plain X-Ray Interpretation: My interpretation is in agreement with the radiologist's impression of this imaging study. - EXAMINATION: XR KNEE, RIGHT CLINICAL INFORMATION: Pain COMPARISON: None available. TECHNIQUE: Four views of the right knee. FINDINGS: Hardware partially visualized in the distal femur. There is lucency around the hardware. Therefore an element of loosening cannot be excluded. There is no evidence for an acute fracture or dislocation. Small bony excrescence emanating off the medial aspect of the proximal tibial metadiaphysis could represent a small osteochondroma. Please compare with previous studies XR/XR knee RT 4V IMPRESSION: No acute finding. Hardware in the distal femur. Element of loosening cannot be excluded. There is no evidence for an acute fracture or dislocation. Other findings are as described above. Dictated By: Karel Chávez MD Signed By: Electronically signed by Karel Chávez MD 12/17/23 2755 Radiology Impression Discussion of test interpretation with radiology: I have reviewed the radiologist's reading. Critical Care Time Critical Care Time Critical Care Time: Yes Total Critical Care Time: 32 Attestation: I spent 32 minutes of Critical Care Time with this patient. This does not include time spent on separately reported billable procedures. Discharge Plan Discharge Clinical Impression: Acute knee pain, Tick bite Patient Disposition: Home, Self-Care Instructions: Tick Bite (ED), Knee Pain (ED) Additional Instructions: Follow up with your primary care provider and an orthopedic provider. Given your recent tick bite and unsure if head was removed, we are covering you for Lyme disease. It takes days for the results to come back. We will call you if they are positive. Return to the emergency department immediately if your symptoms worsen or if you develop any dizziness, shortness of breath, difficulty breathing, chest pain, blurry vision, loss of vision, nausea, vomiting, abdominal pain, fever, chills, back pain, or any other complaints. Prescriptions: New doxycycline hyclate 100 mg tablet 100 mg PO BID 10 Days Qty: 20 0RF No Action azithromycin [Zithromax Z-Óscar] 250 mg tablet See Rx Instructions .ROUTE .COMPLEX Qty: 6 0RF Rx Instructions: take 500 mg today (day 1), then 250 mg for 4 days (days 2-5) prednisone 20 mg tablet 40 mg PO DAILY 5 Days Qty: 10 0RF albuterol sulfate [ProAir HFA] 90 mcg/actuation HFA aerosol inhaler 2 puff inhalation Q6H PRN (Reason: shortness of breath or wheezing) Qty: 18 0RF albuterol sulfate 2.5 mg /3 mL (0.083 %) solution for nebulization 2.5 mg inhalation Q4-6H PRN (Reason: shortness of breath or wheezing) Qty: 75 0RF ketorolac 10 mg tablet 10 mg PO TID PRN (Reason: pain) 5 Days Qty: 15 0RF Referrals: [facility] Family Medicine [Provider Group] (Call to establish and follow up with a primary care provider. If you already have a primary care provider, please follow up with them.) [facility] [Provider Group] [facility] Primary [facility] [Provider Group] [facility] [place] [facility] Surgeons [Provider Group] (Call to establish and follow up with an orthopedic provider.) Stand Alone Forms: Work/School Release Discharge Date/Time: 12/17/23 12:51 Print Language: Malay
[2023-12-17 12:29] VITALS: BP 147/94; PULSE 86; RESP 18; TEMP 36.2; O2SAT 97
[2023-12-17] MEDS: Ketorolac Tromethamine 15 MG/ML VIAL IM (12:44)
[2023-12-18 18:03] LABS: Lyme Abs Screen <0.90 index
== END 2023-12-17 12:51 | disposition home or self-care (01) ==
PROVIDERS: Emergency Provider Emergency Medicine
DX: M25.561 Pain in right knee (principal); W57.XXXA Bitten or stung by nonvenomous insect and other nonvenomous arthropods, initial encounter; Y93.9 Activity, unspecified; Y92.9 Unspecified place or not applicable; Y99.9 Unspecified external cause status
CPT/HCPCS: 36415; 73564; 86617; 86618; 96372; 99283; 99284; J1885

== ENCOUNTER 2024-01-07 06:55 | Outpatient (REF) | payer OTHER, SELFPAY | END 2024-01-07 06:56 | disposition home or self-care (01) | LOC: HO.HOSX 06:55 | PROVIDERS: Visit Provider Physician Assistant | DX: Z13.89 Encounter for screening for other disorder (principal) ==

== ENCOUNTER → 2024-05-25 08:58 | Outpatient (BNVA) | payer OTHER, SELFPAY | PROVIDERS: Visit Provider Registered Nurse | DX: L23.7 Allergic contact dermatitis due to plants, except food (principal) | CPT/HCPCS: 99202 ==

== ENCOUNTER → 2024-05-27 14:32 | Outpatient (BNVA) | payer OTHER, SELFPAY | PROVIDERS: Visit Provider Physician Assistant | DX: L23.7 Allergic contact dermatitis due to plants, except food (principal) | CPT/HCPCS: 99213 ==

== ENCOUNTER → 2024-06-01 09:09 | Outpatient (BNVA) | payer OTHER, SELFPAY | PROVIDERS: Visit Provider Registered Nurse | DX: L23.7 Allergic contact dermatitis due to plants, except food (principal) | CPT/HCPCS: 99213 ==

== ENCOUNTER 2024-10-06 08:36 | Emergency (ER) | payer BC, SELFPAY ==
--- NOTE | ~2024-10-06 | XR_ITS ---
EXAMINATION: XR LUMBAR SPINE 2-3 VIEWS HISTORY: pain s/p lifting child COMPARISON: There are no prior studies for comparison. FINDINGS: AP, lateral, and coned down views of the lumbar spine are submitted. Osseous mineralization is normal. Five nonrib-bearing lumbar vertebral bodies are identified, maintaining normal height and alignment without evidence of fracture or spondylolisthesis. Minimal anterior spurring is seen involving the superior endplate of L4. The intervertebral disc spaces are preserved. The posterior elements are intact. The visualized paraspinal soft tissues are unremarkable. XR/XR lumbar spine 2-3V IMPRESSION: Minimal anterior spurring involving the superior endplate of L4. Otherwise unremarkable examination of the lumbar spine. Electronically signed by: Conrad Evangelista MD 10/06/2024 09:37 AM EDT
[2024-10-06 08:50] VITALS: BP 146/97; PULSE 84; RESP 18; TEMP 36.4; O2SAT 98; BMI 34.8
--- NOTE | 2024-10-06 09:13 | ED_ITS ---
HPI - General Adult General Chief complaint: Back Pain/Injury Stated complaint: Low Back Pain Injury 10/05/24 Time Seen by Provider: 10/06/24 09:09 Source: patient Mode of arrival: ambulatory Limitations: no limitations History of Present Illness ED Provider: Adilene Burden PA-C HPI narrative: Patient is a 34 year old assigned male at with no reported medical history presenting to the emergency department today with low back pain. Patient states that he went to get his son out of the bed when he began to have sharp pain in his left low back that radiates down his left leg. Patient denies any dizziness, lightheadedness, abdominal pain, nausea, vomiting, fever, chills, blurry vision, double vision, loss of vision, chest pain, difficulty breathing, shortness of breath, night sweats, pain with urination, increased urinary frequency, increased urinary urgency, blood in his urine or stool, syncope or a near syncopal episode, recent trauma or falls, bowel incontinence, bladder incontinence, or any other complaints at this time. Onset (ago): hour(s) Location: back Radiation: extremity Relieving factors: none Exacerbating factors: movement Associated symptoms: denies other symptoms Treatments prior to arrival: none Related Data Previous Rx's ?Medication ?Instructions ?Recorded albuterol sulfate 2.5 mg/3 mL 2.5 mg (3 mL) inhalation Q4-6H PRN 07/09/20 (0.083 %) solution for nebulization shortness of breath or wheezing #75 mL albuterol sulfate 90 mcg/actuation 2 puff inhalation Q6H PRN 07/09/20 aerosol inhaler (ProAir HFA) shortness of breath or wheezing #18 grams azithromycin 250 mg tablet See Rx Instructions PO .COMPLEX #6 12/10/20 (Zithromax Z-Óscar) tabs prednisone 20 mg tablet 40 mg (2 x 20 mg) PO DAILY 5 days 12/10/20 #10 tabs ketorolac 10 mg tablet 10 mg PO TID PRN pain 5 days #15 08/27/23 tabs doxycycline hyclate 100 mg tablet 100 mg PO BID 10 days #20 tabs 12/17/23 prednisone 10 mg tablet 10 mg PO DIRECTED #4 tabs 06/01/24 albuterol sulfate 90 mcg/actuation 1 inh inhalation QID #8.5 grams 10/06/24 aerosol inhaler cyclobenzaprine 5 mg tablet 5 mg PO TID PRN muscle spasm 7 10/06/24 days #21 tabs prednisone 20 mg tablet 20 mg PO DAILY 7 days #7 tabs 10/06/24 Allergies Allergy/AdvReac Type Severity Reaction Status Date / Time No Known Allergies Allergy Verified 10/06/24 08:53 [No Known Allergies*] Review of Systems Constitutional: Constitutional: Reports no additional constitutional complaints, Denies chills, Denies fever(s) and Denies night sweats Eyes: Eyes: Reports no additional eye complaints, Denies blurry vision, Denies change in vision, Denies diplopia, Denies eye discharge, Denies loss of vision and Denies eye pain ENT: Denies dizziness Cardiovascular: Cardiovascular: Reports no additional cardiovascular complaints, Denies chest pain, Denies lightheadedness, Denies Loss of Consci ousness and Denies dyspnea Respiratory: Respiratory: Reports no additional respiratory complaints and Denies dyspnea Gastrointestinal: Gastrointestinal: Reports no additional gastrointestinal complaints, Denies abdominal pain, Denies melena, Denies hematochezia, Denies change in bowel habits and Denies change in stool character Genitourinary: Genitourinary: Reports no additional male genitourinary complaints, Denies hematuria, Denies oliguria, Denies difficulty urinating, Denies dysuria, Denies urinary frequency, Denies urinary hesitancy, Denies urinary incontinence and Denies urinary urgency Musculoskeletal: Musculoskeletal: Reports no additional musculoskeletal complaints, Reports back pain, Denies numbness and Denies tingling Neurologic: Denies dizziness, Denies loss of vision, Denies numbness and Denies tingling Psychiatric: Psychiatric: Reports no additional psychiatric complaints Endocrine: Endocrine: Reports no additional endocrine complaints Hematologic/Lymphatic: Hematologic/Lymphatic: Reports no additional hematologic/lymphatic complaints Allergic/Immunologic: Allergic/Immunologic: Reports no additional allergi c/immunologic complaints [facility] Past Medical History Attestation statement: The following information was validated with the patient. Source: old records reviewed and nursing notes reviewed Medical History Asthma Social History Social History Substance Use Type: Marijuana Advance Directives: No Advance Directives Information Provided: Yes Physical Exam ED Vital Signs: Vital Signs - 24 hr 10/06/24 08:50 Temperature 97.5 F Pulse Rate 84 Respiratory Rate 18 Blood Pressure 146/97 H Pulse Oximetry 98 Oxygen Delivery Method Room Air BMI result Body Mass Index 34.8 Const General: cooperative, no acute distress, alert and awake Nutritional Appearance: well nourished Orientation/consciousness: patient oriented x3 Limitations: no limitations HENMT Head: Yes normal to inspection and Yes atraumatic Ears: hearing grossly normal bilaterally and external ears normal General nose exam: Normal external nose present, no nasal discharge noted and no epistaxis Face and sinus: Yes normal facial exam, No abrasion and No laceration Mouth: Normal oral and palatal mucosa present, no drooling and no muffled voice Eyes General: appearance normal, both eyes and all related structures Periorbital: periorbital findings normal Eyelids: Yes eyelids normal Conjunctivae: conjunctivae normal Pupils: Equal, round and reactive pupils present EOM: EOMs intact bilaterally Neck Neck: Yes normal visual inspection, Yes full ROM and Yes no lymphadenopathy Chest Chest palpation & inspection: normal inspection of the chest Resp Effort & Inspection: normal respiratory effort and able to speak in complete sentences GI Inspection: Yes normal to inspection Back/Spine/Pelvis Other: lumbar pain with ROM that radiates down left leg Neuro General: patient oriented x3, moves all extremities and CN's II-XI intact bilaterally Cranial nerves: Yes Equal, round and reactive pupils present Cognition (Neuro): normal cognition Extrem General: Yes normal to inspection, Yes full ROM and Yes capillary refill normal Psych Appearance: grossly normal Mental Status: mental status grossly normal Affect: normal affect Attitude: cooperative Thought process: Normal thought process present Thought content: Normal thought content present Insight: Good insight present (Psych) Medications Administered Discontinued Medications Generic Name Dose Route Start Last Admin Trade Name Freq PRN Reason Stop Dose Admin Cyclobenzaprine HCl 5 mg 10/06/24 09:19 10/06/24 09:32 Cyclobenzaprine Hcl 5 Mg Tablet PO 10/06/24 09:20 5 mg ONCE ONE Administration Ketorolac Tromethamine 15 mg 10/06/24 09:19 10/06/24 09:33 Ketorolac Tromethamine 15 Mg/Ml Vial IM 10/06/24 09:20 15 mg ONCE ONE Administration Methylprednisolone Sodium Succinate 60 mg 10/06/24 09:19 10/06/24 09:32 Methylprednisolone Sod Succ 125 Mg/2 Ml Vial IM 10/06/24 09:20 60 mg ONCE ONE Administration Medical Decision Making Medical Decision Making MDM Narrative: Patient is a 34 year old assigned male at with no reported medical history presenting to the emergency department today with low back pain. Patient's physical exam showed pain with lumbar ROM but not to palpation. Patient's lumbar x-ray showed no acute process. I explained my physical exam findings as well as all test results to the patient. I answered all questions asked by the patient. Patient's clinical presentation is most consistent with a lumbar strain. Patient received IM Solu-medrol, IM Toradol, and PO flexeril which, upon re-evaluation, he stated it helped his pain some. I stressed the importance of the patient taking his medication as directed (either prescribed or as the over the counter packaging recommends). I stressed the importance of the patient following up with his primary care provider. I stressed the importance of the patient returning to the emergency department immediately if his symptoms were to worsen or if he were to develop any dizziness, shortness of breath, difficulty breathing, chest pain, blurry vision, loss of vision, nausea, vomiting, abdominal pain, fever, chills, back pain, or any other complaints. Patient verbalized agreement and understanding with this treatment plan and discharge. Patient states that he is out of a previously prescribed albuterol inhaler and requested a refill. Refill sent. Differential Diagnosis Differential Diagnoses: The differential diagnosis associated with the presentation includes Lumbar strain Lumbar sprain Bulging disc Admission/Observation Consideration of admission/observation: Escalation of care including admission/observation considered Patient would have been admitted to the hospital had his work up had any findings where hospital admission was appropriate and his clinical presentation warranted hospital admission. Independent Interpretation I performed an independent interpretation of an: Plain X-Ray Interpretation: My interpretation is in agreement with the radiologist's impression of this imaging study. EXAMINATION: XR LUMBAR SPINE 2-3 VIEWS HISTORY: pain s/p lifting child COMPARISON: There are no prior studies for comparison. FINDINGS: AP, lateral, and coned down views of the lumbar spine are submitted. Osseous mineralization is normal. Five nonrib-bearing lumbar vertebral bodies are identified, maintaining normal height and alignment without evidence of fracture or spondylolisthesis. Minimal anterior spurring is seen involving the superior endplate of L4. The intervertebral disc spaces are preserved. The posterior elements are intact. The visualized paraspinal soft tissues are unremarkable. XR/XR lumbar spine 2-3V IMPRESSION: Minimal anterior spurring involving the superior endplate of L4. Otherwise unremarkable examination of the lumbar spine. Electronically signed by: Conrad Evangelista MD 10/06/2024 09:37 AM EDT RP Dictated By: Conrad Evangelista MD Signed By: Electronically signed by Conrad Evangelista MD 10/06/24 0937 Radiology Impression Discussion of test interpretation with radiology: I have reviewed the radiologist's reading. Prescription Management I considered prescription management with: Pain Medication (patient prescribed pain medication.) Discharge Plan Discharge Clinical Impression: Strain of lumbar region, Medicine refill Patient Disposition: Home, Self-Care Instructions: Lower Back Exercises (ED), Medicine Refill (ED) Additional Instructions: Apply heat to the area. Follow up with your primary care provider. Return to the emergency department immediately if your symptoms worsen or if you develop any numbness, tingling, dizziness, shortness of breath, difficulty breathing, chest pain, blurry vision, loss of vision, nausea, vomiting, abdominal pain, fever, chills, back pain, or any other complaints. Please see the information below about our Patient Portal. If you are not yet enrolled in the [facility] Patient Portal, you will receive an enrollment email invitation following your visit to any [facility] setting. You may also self-enroll in the Patient Portal by visiting our website: [email or web address] The following information is required to access the Patient Portal: - Your [facility] Medical Record Number - Your personal home email address (must match what is in your electronic medical record, Registration staff can assist with this) - Name - Date of Capabilities of the Patient Portal: - Message some providers - View upcoming appointments - Access your health summary, medical history, and visit history - View current conditions and allergies - View procedure and lab results - View your medications, including guidelines, side effects, and precautions - Complete pre-appointment questionnaires requested by your provider - Ready summary reports of your office visits and procedures To access the Patient Portal Mobile Lisa, follow these directions: - Search [employer] in the Lisa Store or Google [email or web address] Store - Download the Lisa - Search for [facility] - Enter your login/password Prescriptions: New cyclobenzaprine 5 mg tablet 5 mg PO TID PRN (Reason: muscle spasm) 7 Days Qty: 21 0RF prednisone 20 mg tablet 20 mg PO DAILY 7 Days Qty: 7 0RF albuterol sulfate 90 mcg/actuation HFA aerosol inhaler 1 inh inhalation QID Qty: 8.5 0RF No Action azithromycin [Zithromax Z-Óscar] 250 mg tablet See Rx Instructions .ROUTE .COMPLEX Qty: 6 0RF Rx Instructions: take 500 mg today (day 1), then 250 mg for 4 days (days 2-5) prednisone 20 mg tablet 40 mg PO DAILY 5 Days Qty: 10 0RF albuterol sulfate [ProAir HFA] 90 mcg/actuation HFA aerosol inhaler 2 puff inhalation Q6H PRN (Reason: shortness of breath or wheezing) Qty: 18 0RF albuterol sulfate 2.5 mg /3 mL (0.083 %) solution for nebulization 2.5 mg inhalation Q4-6H PRN (Reason: shortness of breath or wheezing) Qty: 75 0RF ketorolac 10 mg tablet 10 mg PO TID PRN (Reason: pain) 5 Days Qty: 15 0RF doxycycline hyclate 100 mg tablet 100 mg PO BID 10 Days Qty: 20 0RF prednisone 10 mg tablet 10 mg PO DIRECTED Qty: 4 0RF Rx Instructions: 2 tablets daily x 1 days, then 1 tablet daily x 2 days. Referrals: [facility] Family Medicine [Provider Group] (Call to establish and follow up with a primary care provider. If you already have a primary care provider, please follow up with them.) [facility] [Provider Group] (Call to establish and follow up with a primary care provider. If you already have a primary care provider, please follow up with them.) [facility] Primary [facility] [Provider Group] (Call to establish and follow up with a primary care provider. If you already have a primary care provider, please follow up with them.) [facility] [Provider Group] (Call to establish and follow up with a primary care provider. If you already have a primary care provider, steffen alfaro follow up with them.) Stand Alone Forms: Work/School Release Interventions: ED Discharge Assessment Last Done: 10/06/24 09:37 Discharge Date/Time: 10/06/24 09:40 Print Language: Chinese
[2024-10-06] MEDS: methylPREDNISolone Sod Succ 125 MG/2 ML VIAL 60 MG IM (09:32)
[2024-10-06] MEDS: Cyclobenzaprine HCl 5 MG TABLET PO (09:32)
[2024-10-06] MEDS: Ketorolac Tromethamine 15 MG/ML VIAL IM (09:33)
[2024-10-06 09:37] VITALS: BP 146/97; PULSE 84; RESP 18; TEMP 36.4; O2SAT 98
== END 2024-10-06 09:40 | disposition home or self-care (01) ==
PROVIDERS: Emergency Provider Emergency Medicine Emergency Medical Services
DX: S39.012A Strain of muscle, fascia and tendon of lower back, initial encounter (principal); X50.9XXA Other and unspecified overexertion or strenuous movements or postures, initial encounter; Y93.9 Activity, unspecified; Y92.003 Bedroom of unspecified non-institutional (private) residence as the place of occurrence of the external cause; Y99.8 Other external cause status; Z76.0 Encounter for issue of repeat prescription
CPT/HCPCS: 72100; 96372; 99283; 99284; J1885; J2919

== ENCOUNTER → 2024-10-06 09:00 | Outpatient (BNV) | payer BC, SELFPAY | PROVIDERS: Emergency Provider Emergency Medicine Emergency Medical Services; Visit Provider Radiology Diagnostic Radiology | DX: M54.50 Low back pain, unspecified (principal) | CPT/HCPCS: 72100 ==

== ENCOUNTER → 2024-11-12 14:02 | Outpatient (BNVA) | payer OTHER, SELFPAY | PROVIDERS: Visit Provider Physician Assistant | DX: S93.692A Other sprain of left foot, initial encounter (principal); X50.1XXA Overexertion from prolonged static or awkward postures, initial encounter | CPT/HCPCS: 73610; 73630; 99204 ==

== ENCOUNTER → 2024-11-23 13:51 | Outpatient (BNVA) | payer OTHER, SELFPAY | PROVIDERS: Visit Provider Physician Assistant Medical | DX: S93.692A Other sprain of left foot, initial encounter (principal); X50.1XXA Overexertion from prolonged static or awkward postures, initial encounter | CPT/HCPCS: 99213 ==

== ENCOUNTER → 2024-12-02 10:15 | Outpatient (BNVA) | payer OTHER, SELFPAY | PROVIDERS: Visit Provider Physician Assistant Medical | DX: S93.692D Other sprain of left foot, subsequent encounter (principal); X50.1XXD Overexertion from prolonged static or awkward postures, subsequent encounter | CPT/HCPCS: 99213 ==